=== PATIENT | female | born 1950 | race Two or more races ===

== ENCOUNTER 2022-07-21 13:36 | Inpatient (IN) | payer MEDICARE, OTHER ==
[~2022-07-21] VITALS: Ht 157.5 cm; Wt 38.5 kg
[2022-07-21] MEDS ORDERED: diphenhdrAMINE HCL 50 MG/1 ML VL IV ONE (15:15)
[2022-07-21] MEDS ORDERED: DexAMETHasone SOD PHOS 10MG/1ML VIAL INJ IV ONE (15:15)
[2022-07-21] MEDS ORDERED: MORPHINE SULFATE 4 MG/ML SYR/VIAL IV ONE (15:15)
[2022-07-21 15:17] LABS: Red Cell Distribution Width 18.4 % (11.8-14.3)
[2022-07-21 15:19] LABS: Hematocrit 33.4 % (36.0-46.0); Hemoglobin 11.4 g/dL (12.2-16.2); Mean Corpuscular Hemoglobin 31.1 pg (28.0-32.0); Mean Corpuscular Volume 91.3 fL (80.0-100.0); Red Blood Cells 3.66 10^6/uL (4.0-5.20); White Blood Cell 3.8 10^3/uL (4.4-10.8)
[2022-07-21 15:26] LABS: Band Neutrophils % (manual) 0; Basophils % (manual) 0 (0.0-2.0); Blast Cells 0; Metamyelocytes % 0; Myelocytes % 0; Promyelocytes % 0; Reactive Lymphocytes 0
[2022-07-21 15:36] LABS: Albumin 2.2 g/dL (3.4-5.0); BUN/Creatinine Ratio 31.3; Potassium 3.5 mmol/L (3.5-5.1)
[2022-07-21 15:38] LABS: Bilirubin, Total 0.6 mg/dL (0.2-1.0); Total Protein 4.6 g/dL (6.4-8.2)
[2022-07-21 16:07] LABS: Eosinophils % (manual) 2 (0-7); Lymphocytes % (manual) 10 (10.0-50.0); Monocytes % (manual) 8 (0-12)
[2022-07-21] MEDS ORDERED: SODIUM CHLORIDE 0.9% 1,000 ML IV ONE ×2 (16:15→18:00)
[2022-07-21] MEDS ORDERED: metroNIDAZOLE 500MG/100ML 100 ML IV ONE (18:30)
[2022-07-21] MEDS ORDERED: cefTRIAXone 1GM/50ML D5W 50 ML IV ONE (18:30)
[2022-07-21] MEDS ORDERED: ONDANSETRON HCL 4 MG/2 ML VIAL IV PRN (18:30)
[2022-07-21] MEDS ORDERED: HYDROcodone-ACET 5/325MG TAB PO PRN (18:30)
[2022-07-21] MEDS ORDERED: ACETAMINOPHEN 325 MG TAB PO PRN (18:30)
[2022-07-21] MEDS ORDERED: MORPHINE SULFATE INJ 2 MG/ml SYRG IV PRN (18:30)
[2022-07-21] MEDS ORDERED: NITROGLYCERIN 0.4 MG SL TAB SL PRN (18:30)
[2022-07-21] MEDS ORDERED: ALBUTEROL MEDNEB 2.5 mg/3ml NEB ONE (18:41)
[2022-07-21] MEDS ORDERED: IPRATROPIUM BROM 0.5 MG/2.5ML INH SOL ONE (18:41)
[2022-07-21] MEDS ORDERED: ALBUMIN 5% 250 ML IV ONE (18:45)
[2022-07-21] MEDS: IPRATROPIUM BROM 0.5 MG/2.5ML INH SOL NEB PRN (18:53)
[2022-07-21] MEDS: ALBUTEROL SULF 2.5 MG/0.5ML(0.5%) NEB SOLN NEB PRN (18:53)
[2022-07-21 19:00] VITALS: BP 91/37
[2022-07-21] MEDS ORDERED: ALBUMIN 25% 250 ML IV ONE (19:00)
[2022-07-21] MEDS: SODIUM CHLORIDE 0.9% 1,000 ML IV SCH (19:06)
[2022-07-21 19:17] LABS: Urine Bacteria NONE SEEN /hpf (None Seen); Urine Blood Negative /uL (Negative); Urine Mucus FEW (None Seen); Urine Specific Gravity 1.028 (1.001-1.035); Urine WBC 29 /hpf (0 - 5)
[2022-07-21 21:14] LABS: Lactic Acid w/Reflex 2.1 mmol/L (0.4-2.0)
[2022-07-21] MEDS: GABAPENTIN 300 MG CAP PO SCH (22:00)
[2022-07-21] MEDS: NOREPINEPHRINE 8 MG/250ML KIT 250 ML IV SCH (23:59)
[2022-07-22] MEDS: GABAPENTIN 300 MG CAP PO SCH ×3 (02:08→22:32)
[2022-07-22] MEDS: SODIUM CHLORIDE 0.9% 1,000 ML IV SCH (02:30)
[2022-07-22] MEDS ORDERED: metroNIDAZOLE 500MG/100ML 100 ML IV SCH (06:00)
[2022-07-22] MEDS ORDERED: ALBUTEROL MEDNEB 2.5 mg/3ml NEB ONE ×3 (06:07→18:48)
[2022-07-22] MEDS: IPRATROPIUM BROM 0.5 MG/2.5ML INH SOL NEB SCH ×3 (06:13→18:59)
[2022-07-22] MEDS: ALBUTEROL SULF 2.5 MG/0.5ML(0.5%) NEB SOLN NEB SCH ×3 (06:13→18:59)
[2022-07-22 07:42] LABS: Hematocrit 32.2 % (36.0-46.0); Hemoglobin 10.8 g/dL (12.2-16.2); Mean Corpuscular Hgb Conc. 33.5 g/dL (32.0-36.0); Mean Corpuscular Volume 92.7 fL (80.0-100.0); Red Blood Cells 3.48 10^6/uL (4.0-5.20); Red Cell Distribution Width 18.3 % (11.8-14.3); White Blood Cell 3.7 10^3/uL (4.4-10.8)
[2022-07-22 07:49] LABS: Basophils % (manual) 0 (0.0-2.0); Blast Cells 0; Eosinophils % (manual) 0 (0-7); Metamyelocytes % 0; Myelocytes % 0; Promyelocytes % 0; Reactive Lymphocytes 0
[2022-07-22 07:56] LABS: Anion Gap 4 (5-15); Blood Urea Nitrogen 6 mg/dL (7-18); Calcium 6.9 mg/dL (8.5-10.1); Carbon Dioxide 24 mmol/L (21-32); Chloride 111 mmol/L (98-107); GFR African American 282 mL/min; GFR Non-African American 233 mL/min; Glucose 98 mg/dL (74-106); Potassium 3.2 mmol/L (3.5-5.1); Sodium 139 mmol/L (136-145)
[2022-07-22] MEDS: NutriHep RTU 240 mL Unflavored PO SCH ×3 (08:00→18:57)
[2022-07-22] MEDS ORDERED: cefTRIAXone 1GM/50ML D5W 50 ML IV SCH (09:00)
[2022-07-22] MEDS: ENOXAPARIN SOD 30 MG/0.3 ML SYRINGE SC SCH (10:43)
[2022-07-22] MEDS: BIKTARVY TABLET PO SCH (14:29)
[2022-07-22] MEDS ORDERED: MEROPENEM 1GM IVPB 100 ML IV SCH (15:00)
[2022-07-22] MEDS: diphenhdrAMINE HCL 25 MG CAP PO PRN ×2 (16:14→23:37)
[2022-07-22 16:48] LABS: Band Neutrophils % (manual) 2; Lymphocytes % (manual) 13 (10.0-50.0); Monocytes % (manual) 6 (0-12)
[2022-07-22] MEDS ORDERED: BACTRIM 5MG/KG Q8HR PER RX 0 ML IV SCH (18:30)
[2022-07-22] MEDS ORDERED: MICAFUNGIN SODIUM 100 MG in SODIUM CHL 0.9% 100 ML IV SCH (19:30)
[2022-07-22] MEDS: D5W/SOD CHL 0.45%/KCL 20MEQ 1,000 ML IV SCH ×2 (19:56→23:53)
[2022-07-22] MEDS: NOREPINEPHRINE 8 MG/250ML KIT 250 ML IV SCH (19:58)
[2022-07-22] MEDS ORDERED: D5W 5% IV SCH (20:00)
[2022-07-22] MEDS ORDERED: SULFAMETH TRIMETH IV SCH (20:00)
[2022-07-22] MEDS ORDERED: IOHEXOL 350 MG/ML 100ML IJ ONE ×2 (20:03→21:05)
[2022-07-22] MEDS: VANCOMYCIN HCL 500MG/5ML ORAL SOL PO SCH ×2 (20:24→22:00)
[2022-07-22] MEDS: LORazepam 0.5 MG TAB PO PRN (22:08)
[2022-07-22] MEDS: DOXYCYCLINE 100 MG TAB/CAP PO SCH (22:32)
[2022-07-22] MEDS: methylPREDNISolone SOD SUCC 40 MG/ML VL IV SCH (22:33)
[2022-07-22] MEDS: D5W 5% IV SCH (22:34)
[2022-07-22] MEDS: metroNIDAZOLE 500MG/100ML 100 ML IV SCH (22:34)
[2022-07-22] MEDS: SULFAMETH TRIMETH IV SCH (22:34)
[2022-07-22] MEDS: CEFEPIME 2 GM in SODIUM CHL 0.9% 50 ML IV SCH (23:51)
[2022-07-23] MEDS ORDERED: ALBUTEROL MEDNEB 2.5 mg/3ml NEB ONE ×4 (02:17→22:06)
[2022-07-23] MEDS: VANCOMYCIN HCL 500MG/5ML ORAL SOL PO SCH ×4 (05:42→22:35)
[2022-07-23] MEDS: diphenhdrAMINE HCL 25 MG CAP PO PRN ×2 (05:46→10:18)
[2022-07-23] MEDS: D5W 5% IV SCH ×3 (06:00→22:36)
[2022-07-23] MEDS: SULFAMETH TRIMETH IV SCH ×3 (06:00→22:36)
[2022-07-23] MEDS: metroNIDAZOLE 500MG/100ML 100 ML IV SCH ×3 (06:04→22:41)
[2022-07-23 07:28] LABS: Mean Corpuscular Volume 93.6 fL (80.0-100.0)
[2022-07-23 07:30] LABS: Hematocrit 31.2 % (36.0-46.0); Hemoglobin 10.4 g/dL (12.2-16.2); Mean Corpuscular Hemoglobin 31.1 pg (28.0-32.0); Mean Corpuscular Hgb Conc. 33.3 g/dL (32.0-36.0); Red Blood Cells 3.33 10^6/uL (4.0-5.20); Red Cell Distribution Width 18.6 % (11.8-14.3)
[2022-07-23 07:40] LABS: White Blood Cell 1.9 10^3/uL (4.4-10.8)
[2022-07-23 07:42] LABS: BUN/Creatinine Ratio 16.1; Basophils % (manual) 0 (0.0-2.0); Blast Cells 0; Calcium 7.4 mg/dL (8.5-10.1); Eosinophils % (manual) 0 (0-7); Metamyelocytes % 0; Myelocytes % 0; Potassium 3.7 mmol/L (3.5-5.1); Promyelocytes % 0; Reactive Lymphocytes 0
[2022-07-23] MEDS: NutriHep RTU 240 mL Unflavored PO SCH ×3 (08:00→18:00)
[2022-07-23] MEDS: ALBUTEROL SULF 2.5 MG/0.5ML(0.5%) NEB SOLN NEB SCH ×3 (08:24→18:30)
[2022-07-23] MEDS: IPRATROPIUM BROM 0.5 MG/2.5ML INH SOL NEB SCH ×3 (08:24→18:30)
[2022-07-23 09:30] LABS: Band Neutrophils % (manual) 6; Lymphocytes % (manual) 9 (10.0-50.0); Monocytes % (manual) 5 (0-12)
[2022-07-23] MEDS: CEFEPIME 2 GM in SODIUM CHL 0.9% 50 ML IV SCH (10:00)
[2022-07-23] MEDS: LORazepam 0.5 MG TAB PO PRN (10:18)
[2022-07-23] MEDS: DOXYCYCLINE 100 MG TAB/CAP PO SCH ×2 (10:28→22:35)
[2022-07-23] MEDS: GABAPENTIN 300 MG CAP PO SCH ×2 (10:28→22:35)
[2022-07-23] MEDS: methylPREDNISolone SOD SUCC 40 MG/ML VL IV SCH ×2 (10:29→22:57)
[2022-07-23] MEDS: ENOXAPARIN SOD 30 MG/0.3 ML SYRINGE SC SCH (10:29)
[2022-07-23] MEDS: BIKTARVY TABLET PO SCH (10:56)
[2022-07-23 12:26] LABS: INR 1.13 (0.9-1.15); Partial Thromboplastin Time 25.4 sec (24.6-33.4)
[2022-07-23] MEDS: MIDODRINE HCL 10 MG TAB PO SCH ×2 (14:12→18:19)
[2022-07-23] MEDS ORDERED: LIDOCAINE 1% (LOCAL ANESTH.) PF 5ml SDV ID ONE (15:15)
[2022-07-23] MEDS: D5W/SOD CHL 0.45%/KCL 20MEQ 1,000 ML IV SCH ×2 (17:35→23:51)
[2022-07-23] MEDS: NOREPINEPHRINE 8 MG/250ML KIT 250 ML IV SCH (19:53)
[2022-07-23] MEDS ORDERED: MICAFUNGIN SODIUM 100 MG in SODIUM CHL 0.9% 100 ML IV SCH (20:00)
[2022-07-23] MEDS: IPRATROPIUM BROM 0.5 MG/2.5ML INH SOL NEB PRN (22:07)
[2022-07-23] MEDS: ALBUTEROL SULF 2.5 MG/0.5ML(0.5%) NEB SOLN NEB PRN (22:07)
[2022-07-23] MEDS: SODIUM CHLOR 0.9% PF (SALINE LOCK) 10ML VIAL/SYR IV SCH (22:35)
[2022-07-24] MEDS ORDERED: ALBUTEROL MEDNEB 2.5 mg/3ml NEB ONE ×3 (00:25→13:58)
[2022-07-24] MEDS ORDERED: ALBUTEROL SULF 2.5 MG/0.5ML(0.5%) NEB SOLN NEB ONE (00:30)
[2022-07-24] MEDS ORDERED: IPRATROPIUM BROM 0.5 MG/2.5ML INH SOL NEB ONE (00:30)
[2022-07-24] MEDS: LORazepam 0.5 MG TAB PO PRN (00:45)
[2022-07-24] MEDS: MORPHINE SULFATE INJ 2 MG/ml SYRG IV PRN ×2 (01:21→14:06)
[2022-07-24 01:29] VITALS: BP 107/70
[2022-07-24] MEDS: CEFEPIME 2 GM in SODIUM CHL 0.9% 50 ML IV SCH ×2 (01:31→09:00)
[2022-07-24] MEDS: VANCOMYCIN HCL 500MG/5ML ORAL SOL PO SCH ×3 (05:55→18:00)
[2022-07-24] MEDS: MIDODRINE HCL 10 MG TAB PO SCH ×3 (05:55→18:00)
[2022-07-24] MEDS: metroNIDAZOLE 500MG/100ML 100 ML IV SCH ×2 (05:58→14:00)
[2022-07-24] MEDS: D5W 5% IV SCH ×2 (05:58→14:00)
[2022-07-24] MEDS: SULFAMETH TRIMETH IV SCH ×2 (05:58→14:00)
[2022-07-24] MEDS: D5W/SOD CHL 0.45%/KCL 20MEQ 1,000 ML IV SCH ×2 (06:30→16:30)
[2022-07-24] MEDS: NutriHep RTU 240 mL Unflavored PO SCH ×3 (07:52→18:00)
[2022-07-24] MEDS: IPRATROPIUM BROM 0.5 MG/2.5ML INH SOL NEB SCH ×3 (09:00→18:00)
[2022-07-24] MEDS: methylPREDNISolone SOD SUCC 40 MG/ML VL IV SCH (09:00)
[2022-07-24] MEDS: BIKTARVY TABLET PO SCH (09:00)
[2022-07-24] MEDS: ALBUTEROL SULF 2.5 MG/0.5ML(0.5%) NEB SOLN NEB SCH ×3 (09:00→18:00)
[2022-07-24] MEDS: SODIUM CHLOR 0.9% PF (SALINE LOCK) 10ML VIAL/SYR IV SCH ×2 (09:00→22:15)
[2022-07-24] MEDS: ENOXAPARIN SOD 30 MG/0.3 ML SYRINGE SC SCH (09:01)
[2022-07-24] MEDS: DOXYCYCLINE 100 MG TAB/CAP PO SCH (09:01)
[2022-07-24] MEDS: GABAPENTIN 300 MG CAP PO SCH ×2 (09:01→22:00)
[2022-07-24] MEDS: ALBUTEROL SULF 2.5 MG/0.5ML(0.5%) NEB SOLN NEB PRN (14:37)
[2022-07-24] MEDS: IPRATROPIUM BROM 0.5 MG/2.5ML INH SOL NEB PRN (14:38)
[2022-07-24] MEDS: diphenhdrAMINE HCL 50 MG/1 ML VL IV PRN ×2 (16:25→22:20)
[2022-07-25] VITALS (7 sets, daily range): BP systolic 85–95; BP diastolic 46–57
[2022-07-25] MEDS: LORazepam 2MG/ML-1ML VIAL IV PRN ×2 (02:10→16:14)
[2022-07-25] MEDS ORDERED: SULF400T PO (03:46)
[2022-07-25] MEDS ORDERED: GABA-339 PO (03:46)
[2022-07-25] MEDS ORDERED: BICT1TAB PO (03:46)
[2022-07-25] MEDS: MIDODRINE HCL 10 MG TAB PO SCH (05:39)
[2022-07-25] MEDS: MORPHINE SULFATE INJ 2 MG/ml SYRG IV PRN (16:07)
[2022-07-26] MEDS: LORazepam 2MG/ML-1ML VIAL IV PRN ×3 (02:18→14:59)
[2022-07-26 05:00] VITALS: BP 89/54
[2022-07-26 08:30] VITALS: BP 92/55
[2022-07-26] MEDS: MORPHINE SULFATE INJ 2 MG/ml SYRG IV PRN ×2 (08:44→15:00)
[2022-07-26 13:00] VITALS: BP 68/48
[2022-07-26 17:00] VITALS: BP 60/44
[2022-07-26 22:00] VITALS: BP 77/54
[2022-07-27 05:00] VITALS: BP 75/50
[2022-07-27 09:03] VITALS: BP 74/40
[2022-07-27 13:00] VITALS: BP 75/39
[2022-07-27 16:43] VITALS: BP 74/39
[2022-07-27 22:00] VITALS: BP 78/35
[2022-07-28 05:00] VITALS: BP 85/44
[2022-07-28 09:42] VITALS: BP 86/46
[2022-07-28 12:52] VITALS: BP 93/44
== END 2022-07-28 13:40 | disposition hospice, home (50) | DRG 974 ==
LOC: ER 13:36 → OVERFLOW 18:30 → CENTRAL 07-24 23:53
PROVIDERS: ADMIT Registered Nurse; ATTEND Nurse Practitioner Acute Care
PROC: 05HY33Z Insertion of Infusion Device into Upper Vein, Percutaneous Approach (ICD-10-PCS; 2022-07-23)
PROC: B54MZZA Ultrasonography of Right Upper Extremity Veins, Guidance (ICD-10-PCS; 2022-07-23)
PROC: 5A09357 Assistance with Respiratory Ventilation, Less than 24 Consecutive Hours, Continuous Positive Airway Pressure (ICD-10-PCS; principal; 2022-07-24)
DX: B20 Human immunodeficiency virus [HIV] disease (principal); A41.9 Sepsis, unspecified organism; J96.20 Acute and chronic respiratory failure, unspecified whether with hypoxia or hypercapnia; R65.21 Severe sepsis with septic shock; J18.9 Pneumonia, unspecified organism; J44.1 Chronic obstructive pulmonary disease with (acute) exacerbation; Z68.1 Body mass index [BMI] 19.9 or less, adult; B25.9 Cytomegaloviral disease, unspecified; A04.72 Enterocolitis due to Clostridium difficile, not specified as recurrent; R64 Cachexia; Z66 Do not resuscitate; E86.0 Dehydration; G89.29 Other chronic pain; L30.9 Dermatitis, unspecified; R62.7 Adult failure to thrive; Z20.822 Contact with and (suspected) exposure to COVID-19; F02.80 Dementia in other diseases classified elsewhere, unspecified severity, without behavioral disturbance, psychotic disturbance, mood disturbance, and anxiety; L21.9 Seborrheic dermatitis, unspecified; N30.90 Cystitis, unspecified without hematuria; Z51.5 Encounter for palliative care; Z78.9 Other specified health status; Z87.891 Personal history of nicotine dependence; Z91.14 Patient's other noncompliance with medication regimen
CPT/HCPCS: 36415; 36569; 71045; 71260; 74177; 80048; 80053; 81001; 83605; 83880; 84484; 85007; 85027; 85610; 85730; 86360; 86635; 86641; 86644; 86645; 87040; 87045; 87086; 87205; 87426; 87427; 87493; 93306; 94640; 94660; 97110; 97163; 97530; G0378; J0696; J1100; J2185; J2248; J3490; J7060